=== PATIENT | male | born 1955 | race Two or more races ===

== ENCOUNTER 2025-06-11 07:53 | Emergency (ER) | payer OTHER ==
[~2025-06-11] VITALS: Ht 177.8 cm; Wt 99.8 kg
[2025-06-11 09:25] LABS: PLATELET COUNT (AUTO) 275 K/uL (150-450); RED BLOOD CELL COUNT(AUTO) 5.13 MIL/uL (4.5-6.0); RED CELL DISTRIBUTION WIDTH 15.5 % (11.5-15.0); WHITE BLOOD COUNT (AUTO) 6.4 K/uL (4.3-11.0)
[2025-06-11 09:33] LABS: CALCIUM, SERUM 8.9 mg/dL (8.5-10.1); CREATININE 1.3 mg/dL (0.6-1.3); SODIUM SERUM 143.0 mmol/L (136-145); UREA NITROGEN, BLOOD 18.0 mg/dL (7-18)
[2025-06-11] MEDS ORDERED: ONDANSETRON HCL/PF 4 MG/2 ML VIAL ONE (09:33)
[2025-06-11] MEDS ORDERED: MORPHINE SULFATE INJ 4 MG/ML DISP.SYRIN ONE (09:35)
[2025-06-11] MEDS: ONDANSETRON HCL/PF - ER 4 MG/2 ML VIAL IV ONE (09:47)
[2025-06-11] MEDS: MORPHINE SULFATE INJ 2 MG/ML DISP.SYRIN IV ONE (09:48)
[2025-06-11] MEDS ORDERED: dexaMETHasone SOD PHOSPHATE 1 ML ONE (13:53)
[2025-06-11] MEDS: dexaMETHasone SOD PHOSPHATE 10 MG/ML VIAL IV ONE (13:54)
[2025-06-11] MEDS ORDERED: CYCL10TA9 PO (14:03)
[2025-06-11] MEDS ORDERED: ACET325T53 PO (14:03)
[2025-06-11 16:38] VITALS: BP 140/88; TEMP 98.1; O2SAT 98
== END 2025-06-11 16:46 | disposition home or self-care (01) ==
LOC: ER 09:04
DX: M48.02 Spinal stenosis, cervical region (principal); M50.30 Other cervical disc degeneration, unspecified cervical region; I11.9 Hypertensive heart disease without heart failure
CPT/HCPCS: 99285; 96374; 72125; 96375; 93005; 73030; 85025; 80048; 36415; 84484 ×2; J1100; J2270; J2405 ×2